=== PATIENT | male | born 1980 | race Two or more races ===

== ENCOUNTER 2018-07-05 20:46 | Emergency (ER) | payer SELFPAY ==
[~2018-07-05] VITALS: Ht 165.1 cm; Wt 76.3 kg
--- NOTE | 2018-07-05 21:17 | NUR ---
PT BIBSELF COMPLAINING OF BILATERAL FLANK PAIN X5 DAYS. PT ALSO COMPLAINING OF NAUSEA, DYSURIA, MILD HEMATURIA. PT DENIES TRAUMA. PT AAOX4. RESPIRATIONS EVEN AND UNLABORED. SKIN WARM AND INTACT. NO ACUTE DISTRESS NOTED. URINE COLLECTED AND SENT TO LAB. PT AMBULATORY TO ER BED 10. WAITING MD EVALUATION
[2018-07-05] MEDS ORDERED: KETOROLAC TROMETHAMINE INJ 30 MG/ML VIAL ONE (21:46)
[2018-07-05] MEDS ORDERED: KETOROLAC TROMETHAMINE INJ 30 MG/ML VIAL IM ONE (22:00)
--- NOTE | 2018-07-05 22:31 | NUR ---
Patient discharged to home in stable condition. Written and verbal after care instructions given. Patient verbalizes understanding of instruction. Pt ambulatory with a steady gait
[2018-07-05 22:33] VITALS: BP 118/82
== END 2018-07-05 22:34 | disposition home or self-care (01) ==
LOC: ER 20:54
DX: S39.012A Strain of muscle, fascia and tendon of lower back, initial encounter (principal); S16.1XXA Strain of muscle, fascia and tendon at neck level, initial encounter; X50.9XXA Other and unspecified overexertion or strenuous movements or postures, initial encounter; Y93.89 Activity, other specified; Y92.89 Other specified places as the place of occurrence of the external cause; Y99.8 Other external cause status
CPT/HCPCS: J1885

== ENCOUNTER 2022-04-13 19:18 | Emergency (ER) | payer MEDICAID ==
[~2022-04-13] VITALS: Ht 165.1 cm; Wt 74.8 kg
[2022-04-13 19:50] VITALS: BP 134/70
--- NOTE | 2022-04-13 20:05 | NUR ---
EULALIO MYERS AT PT'S BEDSIDE FOR EVAL
[2022-04-13] MEDS ORDERED: IBUPROFEN 600 MG TABLET PO ONE (20:09)
[2022-04-13] MEDS ORDERED: IBUP-1957 PO (20:16)
[2022-04-13] MEDS ORDERED: AMOX875T2 PO (20:16)
[2022-04-13] MEDS ORDERED: IBUPROFEN 600 MG TABLET ONE (20:16)
--- NOTE | 2022-04-13 20:19 | NUR ---
COVID AND FLUI SWAB COLLECTED
--- NOTE | 2022-04-13 21:00 | NUR ---
Patient discharged to home in stable condition. RX Written and verbal after care instructions given. Patient verbalizes understanding of instruction.
== END 2022-04-13 21:30 | disposition home or self-care (01) ==
LOC: ER 19:20
DX: H66.92 Otitis media, unspecified, left ear (principal); R05.9 Cough, unspecified; Z20.822 Contact with and (suspected) exposure to COVID-19
CPT/HCPCS: 99283; 87426; 87804; C9803